=== PATIENT | male | born 1985 | race Caucasian/White ===

== ENCOUNTER 2017-04-26 12:14 | Inpatient (IN) | payer OTHER ==
[2017-04-26 12:39] VITALS: BMI 23.0
--- NOTE | 2017-04-26 13:29 | HP ---
COWS - Scale Resting Pulse: 1= NE 81-100 Sweatin= Chills/Flushing Restless Observation: 3= Extraneous Movement Pupil Size: 1= Pupils >than Normal Bone or Joint Aches: 1= Mild Discomfort Runny Nose/ Eye Tearin= Runny Nose/Eyes GI Upset > 30mins: 2= Nausea/Diarrhea Tremor Observation: 1= Tremor [place], Not Seen Yawning Observation: 1= 1-2x During Session Anxiety or Irritability: 2=Irritable/Anxious Goose Flesh Skin: 0=Smooth Skin COWS Score: 15 Admission ROS S - HPI Chief Complaint: WITHDRAWAL SYMPTOMS Allergies/Adverse Reactions: Allergies Allergy/AdvReac Type Severity Reaction Status Date / Time loratadine [From Claritin] Allergy Severe Hives Verified 04/26/17 12:57 risperidone [From Risperdal] Allergy Severe Difficulty Verified 04/26/17 12:57 Breathing History of Present Illness: 31 Y.O. MAN WITH A HISTORY OF HEROIN DEPENDENCE IS HERE SEEKING DETOX. HE WAS LAST HERE IN 2014 BUT WAS ADMINISTRATIVELY DISCHARGED FOR NOT ABIDING TO UNIT RULES. HIS LONGEST PERIOD CLEAN HAS BEEN 3 MONTHS. Exam Limitations: No Limitations - Ebola screening Have you traveled outside of the country in the last 21 days: No Have you had contact with anyone from an Ebola affected area: No Have you been sick,other than usual withdrawal symptoms: No Do you have a fever: No - Review of Systems Constitutional: Chills, Changes in sleep EENT: reports: Tearing, Nose Congestion Respiratory: reports: Cough Cardiac: reports: No Symptoms Reported GI: reports: Nausea : reports: No Symptoms Reported Musculoskeletal: reports: No Symptoms Reported Integumentary: reports: No Symptoms Reported Neuro: reports: No Symptoms reported Endocrine: reports: No Symptoms Reported Hematology: reports: Easy Bruising Psychiatric: reports: Judgement Intact, Mood/Affect Appropiate, Orientated x3, other (BIPOLAR, ADD) Other Systems: Reviewed and Negative Patient History - Patient Medical History Hx Anemia: No Hx Asthma: No Hx Chronic Obstructive Pulmonary Disease (COPD): No Hx Cancer: No Hx Cardiac Disorders: Yes (heart murmur, benign) Hx Congestive Heart Failure: No Hx Hypertension: No Hx Hypercholesterolemia: No Hx Pacemaker: No HX Cerebrovascular Accident: No Hx Seizures: No Hx Diabetes: No Hx Gastrointestinal Disorders: No Hx Liver Disease: No Hx Genitourinary Disorders: No Hx Sexually Transmitted Disorders: No Hx Renal Disease (ESRD): No Hx Thyroid Disease: No Hx Human Immunodeficiency Virus (HIV): No Hx Hepatitis C: No Hx Depression: Yes Hx Suicide Attempt: No Hx Bipolar Disorder: Yes Hx Schizophrenia: No Other Medical History: ADD - Patient Surgical History Past Surgical History: No Hx Neurologic Surgery: No Hx Cataract Extraction: No Hx Cardiac Surgery: No Hx Lung Surgery: No Hx Breast Surgery: No Hx Breast Biopsy: No Hx Abdominal Surgery: No Hx Appendectomy: No Hx Cholecystectomy: No Hx Genitourinary Surgery: No Hx Section: No Hx Orthopedic Surgery: No Anesthesia Reaction: No - PPD History Previous Implant?: Yes Documented Results: Negative w/proof Date: 06/25/15 PPD to be Administered?: Yes - Reproductive History Patient is a Female of Child Bearing Age (11 -55 yrs old): No - Smoking Cessation Smoking history: Current every day smoker Have you smoked in the past 12 months: Yes Aproximately how many cigarettes per day: 20 Hx Chewing Tobacco Use: No Initiated information on smoking cessation: Yes 'Breaking Loose' booklet given: 04/26/17 - Substance & Tx. History Hx Alcohol Use: No Hx Substance Use: Yes Substance Use Type: Heroin Hx Substance Use Treatment: Yes (DETOX: 2014; DENIES RECENT REHAB ADMISSION) - Substances Abused Heroin Route: Injection Frequency: Daily Amount used: 10 BAGS Age of first use: 29 Date of Last Use: 04/26/17 Family Disease History - Family Disease History Family Disease History: Diabetes: Grandparent, Heart Disease: Grandparent, CA: Grandparent, Other: Father (chronic pain - estranged), Mother (estranged) Admission Physical Exam S - Vital Signs Vital Signs: Vital Signs - 24 hr 04/26/17 12:36 Temperature 98.0 F Pulse Rate 92 H Respiratory 18 Rate Blood Pressure 119/76 - Physical General Appearance: Yes: Irritable, Anxious HEENTM: Yes: Hearing grossly Normal, Normal ENT Inspection, Normocephalic, Normal Voice Respiratory: Yes: Chest Non-Tender, Lungs Clear, Normal Breath Sounds, No Respiratory Distress, No Accessory Muscle Use Neck: Yes: No masses,lesions,Nodules, Trachea in good position Breast: Yes: Breast Exam Deferred Cardiology: Yes: Regular Rhythm, Regular Rate Abdominal: Yes: Normal Bowel Sounds, Non Tender, Flat Genitourinary: Yes: Other (NO COMPLAINTS REPORTED) Back: Yes: Normal Inspection Musculoskeletal: Yes: full range of Motion, Gait Steady, Pelvis Stable Extremities: Yes: Normal Capillary Refill, Normal Inspection, Normal Range of Motion, Non-Tender Neurological: Yes: material requirements worker II-XII NML intact, Fully Oriented, Alert, Normal Mood/ Affect, Normal Response Integumentary: Yes: Normal Color, Dry, Warm, Track [place] Lymphatic: Yes: Within Normal Limits - Diagnostic (1) Nicotine dependence Current Visit: Yes Status: Chronic (2) Opioid dependence with withdrawal Current Visit: Yes Status: Chronic Cleared for Admission [facility] - Detox or Rehab [facility] Level of Care: Medically Managed Detox Regimen/Protocol: Methadone [facility] Breath Alcohol Content Breath Alcohol Content: 0 Urine Drug Screen - Results Drug Screen Negative: No Urine Drug Screen Results: OPI-Opiates, MET-Methamphetamine, BZO-Benzodiazepines , TCA-Tricyclic Antidepress
[2017-04-26] MEDS ORDERED: MAGNESIUM CITRATE 300 ML BOTTLE PO PRN (13:38)
[2017-04-26] MEDS ORDERED: MAG HYDROX/AL HYDROX/SIMETH 30 ML UNIT-DOSE CUP PO PRN (13:38)
[2017-04-26] MEDS ORDERED: MENTHOL/PHENOL 1 EACH UD MM PRN (13:38)
[2017-04-26] MEDS ORDERED: LOPERAMIDE HCL 2 MG CAPSULE PO PRN (13:38)
[2017-04-26] MEDS ORDERED: IBUPROFEN 400 MG TABLET (FP) PO PRN (13:38)
[2017-04-26] MEDS ORDERED: hydrOXYzine PAMOATE 50 MG CAPSULE (FP) PO PRN (13:38)
[2017-04-26] MEDS ORDERED: MAGNESIUM HYDROX 2400MG/30ML ORAL SUSPENSION 30 ML CUP PO PRN (13:38)
[2017-04-26] MEDS ORDERED: NICOTINE POLACRILEX 2 MG GUM BC PRN (13:38)
[2017-04-26] MEDS ORDERED: ACETAMINOPHEN 325 MG TABLET (FP) PO PRN (13:38)
[2017-04-26] MEDS ORDERED: guaiFENesin/D-METHORPHAN HB 10 ML UNIT-DOSE CUPS PO PRN (13:38)
[2017-04-26] MEDS ORDERED: METHADONE HCL 10 MG TABLET (FOR DETOX USE ONLY) PO ONE ×2 (15:00→23:00)
[2017-04-26] MEDS: diazePAM 5 MG TABLET PO PRN ×2 (15:24→22:24)
[2017-04-26] MEDS: NICOTINE 21 MG/24 HOURS TOPICAL PATCH TD SCH (15:25)
[2017-04-26 20:02] LABS: URINE APPEARANCE SLCLOUDY; URINE BLOOD NEGATIVE (NEGATIVE); URINE COLOR AMBER; URINE GLUCOSE (UA) NEGATIVE (NEGATIVE); URINE KETONE TRACE (NEGATIVE); URINE NITRITE NEGATIVE (NEGATIVE); URINE UROBILINOGEN 4.0 E.U/dl mg/dL (0.2-1.0)
[2017-04-26 20:07] LABS: URINE PROTEIN 1+ (NEGATIVE)
[2017-04-26 20:09] LABS: URINE HYALINE CAST 11 /lpf; URINE MUCUS MANY; URINE RBC 2 /hpf (0-3); URINE WBC 3 /hpf (3-5)
[2017-04-26] MEDS: THIAMINE HCL 100 MG TABLET (FP) PO SCH (22:24)
[2017-04-26 22:45] LABS: URINE LEUK ESTERASE Negative (NEGATIVE)
[2017-04-27] MEDS: diazePAM 5 MG TABLET PO PRN ×3 (06:48→22:14)
[2017-04-27 09:50] LABS: MCH 31.8 pg (25.7-33.7); MCHC 34.5 g/dl (32.0-35.9); MEAN CELL VOLUME 92.2 fl (80-96); MEAN PLT VOLUME 9.4 fl (7.5-11.1); PLATELET COUNT 234 K/MM3 (134-434); RDW 12.9 % (11.9-15.9); WHITE BLOOD COUNT 7.4 K/mm3 (4.0-10.0)
[2017-04-27 09:59] LABS: SGOT/AST 6 U/L (15-37); SGPT/ALT 18 U/L (12-78)
[2017-04-27] MEDS ORDERED: METHADONE HCL 10 MG TABLET (FOR DETOX USE ONLY) PO ONE (10:00)
[2017-04-27] MEDS ORDERED: HALOPERIDOL 2 MG TABLET PO PRN (10:02)
--- NOTE | 2017-04-27 10:02 | CONSULT ---
[facility] Psychiatric Consult - Data Date of interview: 04/27/17 Admission source: [facility] Identifying data: This is 31 years old male with history of Bipolar disorder, history of psyc hiatric hospitalizationhs, intoxicated with: Opioids, Cocaine, Xanax and Nicotine Substance Abuse History: Smoking Cessation. Smoking history: Current every day smoker. Have you smoked in the past 12 months: Yes. Aproximately how many cigarettes per day: 20. Hx Chewing Tobacco Use: No. Initiated information on smoking cessation: Yes. 'Breaking Loose' booklet given: 04/26/17. - Substance & Tx. History. Hx Alcohol Use: No. Hx Substance Use: Yes. Substance Use Type : Heroin. Hx Substance Use Treatment: Yes (DETOX: 2014; DENIES RECENT REHAB ADMISSION). - Substances Abused. Heroin. Route: Injection. Frequency: Daily. Amount used: 10 BAGS. Age of first use: 29. Date of Last Use: 04/26/17 Medical History: Denies significant medical issues Psychiatric History: Patient reports history of Bipolar disorder with most recent psychiatric admission on [address] [facility] , reports taking prior to admission: Depakote 500mg poqd. Haldol 2mg po bid. Cogentin 0.5mg po qhs Physical/Sexual Abuse/Trauma History: Denies Additional Comment: Depakote 500mg poqd. Haldol 2mg po bid. Cogentin 0.5mg po qhs Mental Status Exam - Mental Status Exam Alert and Oriented to: Person Cognitive Function: Fair Patient Appearance: Well Groomed Mood: Apprehensive Affect: Mood Congruent Patient Behavior: Cooperative Speech Pattern: Appropriate Voice Loudness: Mildly Soft/Quiet Thought Process: Goal Oriented Thought Disorder: Being Controlled Hallucinations: Denies Suicidal Ideation: Denies Homicidal Ideation: Denies Insight/Judgement: Fair Sleep: Difficulty falling asleep Appetite: Fair Muscle strength/Tone: Normal Gait/Station: Normal Additional Comments: Depakote 500mg poqd. Haldol 2mg po bid. Cogentin 0.5mg po qhs Psychiatric Findings - Problem List ([place] 1, 2,3) (1) Nicotine dependence Current Visit: Yes Status: Chronic (2) Opioid dependence with withdrawal Current Visit: Yes Status: Chronic (3) ADHD (attention deficit hyperactivity disorder) Current Visit: No Status: Acute (4) Benzodiazepine dependence Current Visit: No Status: Acute (5) Bipolar 1 disorder Current Visit: No Status: Acute (6) Cocaine dependence Current Visit: No Status: Acute Qualifiers: Substance use status: uncomplicated Qualified Code(s): F14.20 - Cocaine dependence, uncomplicated; F14.20 - Cocaine dependence, uncomplicated; F14.20 - Cocaine dependence, uncomplicated (7) Opioid dependence Current Visit: No Status: Acute Qualifiers: Substance use status: in withdrawal Qualified Code(s): F11.23 - Opioid dependence with withdrawal; F11.23 - Opioid dependence with withdrawal; F11.23 - Opioid dependence with withdrawal (8) Uncomplicated sedative, hypnotic, or anxiolytic withdrawal Current Visit: No Status: Acute - Initial Treatment Plan Initial Treatment Plan: Depakote 500mg poqd. Haldol 2mg po bid. Cogentin 0.5mg po qhs
[2017-04-27 10:03] LABS: ALBUMIN 3.5 g/dl (3.4-5.0); ALK PHOS 66 U/L (45-117); ANION GAP 7 (8-16); BILIRUBIN,TOTAL 0.3 mg/dL (0.2-1.0); CALCIUM 8.3 mg/dL (8.5-10.1); CO2 29 mmol/L (21-32); CREATININE 0.6 mg/dL (0.7-1.3); GLUCOSE,RANDOM 105 mg/dL (74-106); TOT PROT 6.8 g/dl (6.4-8.2)
[2017-04-27] MEDS ORDERED: BENZTROPINE MESYLATE 0.5 MG TABLET (FP) PO ONE (10:03)
--- NOTE | 2017-04-27 10:17 | EKG ---
Test Reason : Blood Pressure : / mmHG Vent. Rate : 078 BPM Atrial Rate : 078 BPM P-R Int : 120 ms QRS Dur : 098 ms QT Int : 392 ms P-R-T Axes : 064 047 018 degrees QTc Int : 446 ms NORMAL SINUS RHYTHM NORMAL ECG NO PREVIOUS ECGS AVAILABLE Confirmed by CHRISTOFER BLISS MD ([id number]) on 04/27/2017 10:17:20 AM Referred By: Confirmed By:CHRISTOFER BLISS MD
[2017-04-27] MEDS: PRENATAL VITAMINS W/ FOLIC ACID TABLET (FP) PO SCH (10:22)
[2017-04-27] MEDS: NICOTINE 21 MG/24 HOURS TOPICAL PATCH TD SCH (10:23)
[2017-04-27] MEDS: DIVALPROEX SODIUM 500 MG TABLET E.C. PO SCH (10:24)
[2017-04-27 11:17] LABS: HIV 1 & 2 AB NEGATIVE; HIV 1 AGp24 NEGATIVE
--- NOTE | 2017-04-27 11:41 | PN ---
BHS COWS - Scale Resting Pulse: 1= [place] 81-100 Sweatin= Chills/Flushing Restless Observation: 3= Extraneous Movement Pupil Size: 0= Normal to Room Light Bone or Joint Aches: 4=Acute Joint/Muscle Pain Runny Nose/ Eye Tearin= Nasal Congestion GI Upset > 30mins: 1= Stomach Cramp Tremor Observation of Outstretched Hands: 1= Tremor [place], Not Seen Yawning Observation: 1= 1-2x During Session Anxiety or Irritability: 2=Irritable/Anxious Goose Flesh Skin: 0=Smooth Skin COWS Score: 15 BHS Progress Note (SOAP) Subjective: ANXIETY,SWEATS,FATIGUE. Objective: 04/27/17 11:40 Vital Signs Temperature 98.0 F 04/27/17 10: Pulse Rate 90 04/27/17 10:17 Respiratory Rate 20 04/27/17 10:17 Blood Pressure 105/65 04/27/17 10: O2 Sat by Pulse Oximetry (%) Laboratory Last Values WBC 7.4 K/mm3 (4.0-10.0) 04/27/17 07:00 RBC 4.03 M/mm3 (4.00-5.60) 04/27/17 07:00 Hgb 12.8 GM/dL (11.7-16.9) 04/27/17 07:00 Hct 37.2 % (35.4-49) 04/27/17 07:00 MCV 92.2 fl (80-96) 04/27/17 07:00 MCH 31.8 pg (25.7-33.7) 04/27/17 07:00 MCHC 34.5 g/dl (32.0-35.9) 04/27/17 07:00 RDW 12.9 % (11.9-15.9) 04/27/17 07:00 Plt Count 234 K/MM3 (134-434) 04/27/17 07:00 MPV 9.4 fl (7.5-11.1) 04/27/17 07:00 Sodium 141 mmol/L (136-145) 04/27/17 07:00 Potassium 3.8 mmol/L (3.5-5.1) 04/27/17 07:00 Chloride 105 mmol/L (98-107) 04/27/17 07:00 Carbon Dioxide 29 mmol/L (21-32) 04/27/17 07:00 Anion Gap 7 (8-16) L 04/27/17 07:00 BUN 14 mg/dL (7-18) 04/27/17 07:00 Creatinine 0.6 mg/dL (0.7-1.3) L 04/27/17 07:00 Creat Clearance w eGFR > 60 (>60) 04/27/17 07:00 Random Glucose 105 mg/dL (74-106) 04/27/17 07:00 Calcium 8.3 mg/dL (8.5-10.1) L 04/27/17 07:00 Total Bilirubin 0.3 mg/dL (0.2-1.0) D 04/27/17 07:00 AST 6 U/L (15-37) L D 04/27/17 07:00 ALT 18 U/L (12-78) D 04/27/17 07:00 Alkaline Phosphatase 66 U/L (45-117) 04/27/17 07:00 Total Protein 6.8 g/dl (6.4-8.2) 04/27/17 07:00 Albumin 3.5 g/dl (3.4-5.0) 04/27/17 07:00 Urine Color [place] 04/26/17 17:44 Urine Appearance Slcloudy 04/26/17 17:44 Urine pH 5.0 (5.0-8.0) 04/26/17 17:44 Ur Specific [place] >= 1.030 (1.005-1.025) H 04/26/17 17:44 Urine Protein 1+ (NEGATIVE) H 04/26/17 17:44 Urine Glucose (UA) Negative (NEGATIVE) 04/26/17 17:44 Urine Ketones Trace (NEGATIVE) H 04/26/17 17:44 Urine Blood Negative (NEGATIVE) 04/26/17 17:44 Urine Nitrite Negative (NEGATIVE) 04/26/17 17:44 Urine Bilirubin 2.0 (NEGATIVE) 04/26/17 17:44 Urine Urobilinogen 4.0 e.u/dl mg/dL (0.2-1.0) 04/26/17 17:44 Ur Leukocyte Esterase Negative (NEGATIVE) 04/26/17 17:44 Urine RBC 2 /hpf (0-3) 04/26/17 17:44 Urine WBC 3 /hpf (3-5) 04/26/17 17:44 Hyaline Casts 11 /lpf 04/26/17 17:44 Urine Mucus Many 04/26/17 17:44 RPR Titer Nonreactive (NONREACTIVE) 04/27/17 07:00 HIV 1&2 Antibody Screen Negative 04/27/17 07:00 HIV P24 Antigen Negative 04/27/17 07:00 Assessment: 04/27/17 11:41 WITHDRAWAL SX Plan: CONTINUE DETOX
[2017-04-27] MEDS ORDERED: BENZTROPINE MESYLATE 1 MG TABLET (FP) PO SCH (22:00)
[2017-04-27] MEDS: THIAMINE HCL 100 MG TABLET (FP) PO SCH (22:14)
[2017-04-28] MEDS: diazePAM 5 MG TABLET PO PRN (06:04)
[2017-04-28] MEDS ORDERED: METHADONE HCL 5 MG TABLET (FOR DETOX USE ONLY) PO ONE (10:00)
[2017-04-28] MEDS: DIVALPROEX SODIUM 500 MG TABLET E.C. PO SCH (10:22)
[2017-04-28] MEDS: PRENATAL VITAMINS W/ FOLIC ACID TABLET (FP) PO SCH (10:22)
[2017-04-28] MEDS: NICOTINE 21 MG/24 HOURS TOPICAL PATCH TD SCH (10:23)
--- NOTE | 2017-04-28 10:51 | PN ---
BHS COWS - Scale Resting Pulse: 0= [place] 80 or Below Sweatin= Chills/Flushing Restless Observation: 3= Extraneous Movement Pupil Size: 0= Normal to Room Light Bone or Joint Aches: 4=Acute Joint/Muscle Pain Runny Nose/ Eye Tearin= Nasal Congestion GI Upset > 30mins: 1= Stomach Cramp Tremor Observation of Outstretched Hands: 1= Tremor [place], Not Seen Yawning Observation: 1= 1-2x During Session Anxiety or Irritability: 2=Irritable/Anxious Goose Flesh Skin: 0=Smooth Skin COWS Score: 14 S Progress Note (SOAP) Subjective: ANXIETY,SWEATS,FATIGUE,INTERMITTENT SLEEP. Objective: 04/28/17 10:50 Vital Signs Temperature 98.2 F 04/28/17 09:33 Pulse Rate 80 04/28/17 09:33 Respiratory Rate 18 04/28/17 09:33 Blood Pressure 108/57 04/28/17 09:33 O2 Sat by Pulse Oximetry (%) Laboratory Last Values WBC 7.4 K/mm3 (4.0-10.0) 04/27/17 07:00 RBC 4.03 M/mm3 (4.00-5.60) 04/27/17 07:00 Hgb 12.8 GM/dL (11.7-16.9) 04/27/17 07:00 Hct 37.2 % (35.4-49) 04/27/17 07:00 MCV 92.2 fl (80-96) 04/27/17 07:00 MCH 31.8 pg (25.7-33.7) 04/27/17 07:00 MCHC 34.5 g/dl (32.0-35.9) 04/27/17 07:00 RDW 12.9 % (11.9-15.9) 04/27/17 07:00 Plt Count 234 K/MM3 (134-434) 04/27/17 07:00 MPV 9.4 fl (7.5-11.1) 04/27/17 07:00 Sodium 141 mmol/L (136-145) 04/27/17 07:00 Potassium 3.8 mmol/L (3.5-5.1) 04/27/17 07:00 Chloride 105 mmol/L (98-107) 04/27/17 07:00 Carbon Dioxide 29 mmol/L (21-32) 04/27/17 07:00 Anion Gap 7 (8-16) L 04/27/17 07:00 BUN 14 mg/dL (7-18) 04/27/17 07:00 Creatinine 0.6 mg/dL (0.7-1.3) L 04/27/17 07:00 Creat Clearance w eGFR > 60 (>60) 04/27/17 07:00 Random Glucose 105 mg/dL (74-106) 04/27/17 07:00 Calcium 8.3 mg/dL (8.5-10.1) L 04/27/17 07:00 Total Bilirubin 0.3 mg/dL (0.2-1.0) D 04/27/17 07:00 AST 6 U/L (15-37) L D 04/27/17 07:00 ALT 18 U/L (12-78) D 04/27/17 07:00 Alkaline Phosphatase 66 U/L (45-117) 04/27/17 07:00 Total Protein 6.8 g/dl (6.4-8.2) 04/27/17 07:00 Albumin 3.5 g/dl (3.4-5.0) 04/27/17 07:00 Urine Color [place] 04/26/17 17:44 Urine Appearance Slcloudy 04/26/17 17:44 Urine pH 5.0 (5.0-8.0) 04/26/17 17:44 Ur Specific [place] >= 1.030 (1.005-1.025) H 04/26/17 17:44 Urine Protein 1+ (NEGATIVE) H 04/26/17 17:44 Urine Glucose (UA) Negative (NEGATIVE) 04/26/17 17:44 Urine Ketones Trace (NEGATIVE) H 04/26/17 17:44 Urine Blood Negative (NEGATIVE) 04/26/17 17:44 Urine Nitrite Negative (NEGATIVE) 04/26/17 17:44 Urine Bilirubin 2.0 (NEGATIVE) 04/26/17 17:44 Urine Urobilinogen 4.0 e.u/dl mg/dL (0.2-1.0) 04/26/17 17:44 Ur Leukocyte Esterase Negative (NEGATIVE) 04/26/17 17:44 Urine RBC 2 /hpf (0-3) 04/26/17 17:44 Urine WBC 3 /hpf (3-5) 04/26/17 17:44 Hyaline Casts 11 /lpf 04/26/17 17:44 Urine Mucus Many 04/26/17 17:44 RPR Titer Nonreactive (NONREACTIVE) 04/27/17 07:00 Hepatitis C Antibody 0.2 s/co ratio (0.0-0.9) 04/26/17 07:00 HIV 1&2 Antibody Screen Negative 04/27/17 07:00 HIV P24 Antigen Negative 04/27/17 07:00 Assessment: 04/28/17 10:51 WITHDRAWAL SX Plan: CONTINUE DETOX
[2017-04-28 13:13] VITALS: BP 113/51; PULSE 77; TEMP 96.3
[2017-04-29] MEDS ORDERED: METHADONE HCL 5 MG TABLET (FOR DETOX USE ONLY) PO ONE (10:00)
[2017-04-30] MEDS ORDERED: METHADONE HCL 10 MG TABLET (FOR DETOX USE ONLY) PO ONE (10:00)
[2017-05-01] MEDS ORDERED: METHADONE HCL 5 MG TABLET (FOR DETOX USE ONLY) PO ONE (06:00)
== END 2017-04-28 17:31 | disposition left against medical advice (07) | DRG 894 ==
LOC: YASAS 12:14 → Y3N 13:15
PROVIDERS: ADMIT Internal Medicine; ATTEND Internal Medicine
PROC: HZ2ZZZZ Detoxification Services for Substance Abuse Treatment (ICD-10-PCS; principal; 2017-04-26)
DX: F11.23 Opioid dependence with withdrawal (principal); F13.20 Sedative, hypnotic or anxiolytic dependence, uncomplicated; F31.89 Other bipolar disorder; F17.213 Nicotine dependence, cigarettes, with withdrawal; F90.9 Attention-deficit hyperactivity disorder, unspecified type; R01.1 Cardiac murmur, unspecified; Z88.8 Allergy status to other drugs, medicaments and biological substances
CPT/HCPCS: 36415; 80053; 81003; 81015; 85027; 86593; 86803; 87389; 93005; 93010

== ENCOUNTER 2020-12-28 14:28 | Inpatient (IN) | payer OTHER ==
[2020-12-28 16:02] VITALS: BMI 25.8
[2020-12-28] MEDS ORDERED: ONDANSETRON *ODT* 4 MG TABLET SL PRN (18:17)
[2020-12-28] MEDS ORDERED: NICOTINE POLACRILEX 2 MG GUM BUC PRN (18:17)
[2020-12-28] MEDS ORDERED: ACETAMINOPHEN 325 MG TABLET (FP) PO PRN ×2 (18:17)
[2020-12-28] MEDS ORDERED: MAG HYDROX/AL HYDROX/SIMETH 30 ML UNIT-DOSE CUP PO PRN (18:17)
[2020-12-28] MEDS ORDERED: MAGNESIUM HYDROX 2400MG/30ML ORAL SUSPENSION 30 ML CUP PO PRN (18:17)
[2020-12-28] MEDS ORDERED: IBUPROFEN 400 MG TABLET (FP) PO PRN (18:17)
[2020-12-28] MEDS ORDERED: MENTHOL/PHENOL 1 EACH UD MM PRN (18:17)
[2020-12-28] MEDS ORDERED: BISMUTH SUBSALICYLATE 524 MG/30 ML PO PRN (18:17)
[2020-12-28] MEDS ORDERED: MAGNESIUM CITRATE 300 ML BOTTLE PO PRN (18:17)
[2020-12-28] MEDS ORDERED: traZODone HCL 100 MG TABLET (FP) PO PRN (18:17)
[2020-12-28] MEDS ORDERED: cloNIDine HCL 0.1 MG TABLET PO PRN (18:17)
[2020-12-28] MEDS ORDERED: METHOCARBAMOL 500 MG TABLET PO PRN (18:17)
[2020-12-28] MEDS ORDERED: ALBUTEROL SO4 HFA INHALER IH PRN (18:25)
[2020-12-28] MEDS ORDERED: METHADONE HCL 10 MG TABLET (FOR DETOX USE ONLY) PO ONE (19:30)
[2020-12-28] MEDS ORDERED: MELATONIN 5 MG TABLETS PO SCH (22:00)
[2020-12-28] MEDS ORDERED: THIAMINE HCL 100 MG TABLET (FP) PO SCH (22:00)
[2020-12-28] MEDS: hydrOXYzine PAMOATE 25 MG CAPSULE (FP) PO SCH (22:32)
[2020-12-29] MEDS: hydrOXYzine PAMOATE 25 MG CAPSULE (FP) PO SCH ×3 (06:32→14:33)
[2020-12-29] MEDS ORDERED: METHADONE HCL 10 MG TABLET (FOR DETOX USE ONLY) ONE (08:55)
[2020-12-29] MEDS ORDERED: METHADONE HCL 5 MG TABLET (FOR DETOX USE ONLY) ONE (08:55)
[2020-12-29] MEDS ORDERED: FLUoxetine HCL 20 MG CAPSULE PO SCH (10:00)
[2020-12-29] MEDS ORDERED: PRENATAL VITAMINS W/ FOLIC ACID TABLET (FP) PO SCH (10:00)
[2020-12-29] MEDS ORDERED: NICOTINE 14 MG/24 HOURS TOPICAL PATCH TD SCH (10:00)
[2020-12-29] MEDS ORDERED: METHADONE (DETOX) 20 MG, METHADONE (DETOX) 5 MG PO ONE (10:00)
[2020-12-29 19:08] VITALS: BP 107/73; PULSE 78; TEMP 97.3
[2020-12-29] MEDS ORDERED: ARIPiprazole 2 MG TABLET PO SCH (22:00)
[2020-12-30] MEDS ORDERED: METHADONE HCL 10 MG TABLET (FOR DETOX USE ONLY) PO ONE (10:00)
[2020-12-31] MEDS ORDERED: METHADONE (DETOX) 10 MG, METHADONE (DETOX) 5 MG PO ONE (10:00)
[2021-01-01] MEDS ORDERED: METHADONE HCL 10 MG TABLET (FOR DETOX USE ONLY) PO ONE (10:00)
[2021-01-02] MEDS ORDERED: METHADONE HCL 5 MG TABLET (FOR DETOX USE ONLY) PO ONE (06:00)
== END 2020-12-29 18:25 | disposition left against medical advice (07) | DRG 894 ==
LOC: YASAS 14:28 → Y6N 18:32
PROVIDERS: ADMIT Allergy & Immunology; ATTEND Allergy & Immunology
PROC: HZ2ZZZZ Detoxification Services for Substance Abuse Treatment (ICD-10-PCS; principal; 2020-12-28)
DX: F11.23 Opioid dependence with withdrawal (principal); F14.20 Cocaine dependence, uncomplicated; F17.210 Nicotine dependence, cigarettes, uncomplicated; F19.24 Other psychoactive substance dependence with psychoactive substance-induced mood disorder; F31.9 Bipolar disorder, unspecified; F90.9 Attention-deficit hyperactivity disorder, unspecified type; G47.00 Insomnia, unspecified; J45.909 Unspecified asthma, uncomplicated; B18.2 Chronic viral hepatitis C; Z91.19 Patient's noncompliance with other medical treatment and regimen; Z88.8 Allergy status to other drugs, medicaments and biological substances
CPT/HCPCS: C9803; U0003; U0005